=== PATIENT | female | born 1960 | race African-American/Black ===

== ENCOUNTER 2019-10-09 21:32 | Inpatient (IN) | payer MEDICAID ==
[~2019-10-09] VITALS: Ht 162.6 cm; Wt 84.8 kg
[~2019-10-09 21:32] MED LIST: ASPI-986 PO; BENA20TA10 PO; CALC-889 PO; CELL5 PO; CLOP75TA4 PO; FERR-71 PO; GABA300S PO; METH4TAB17 PO; PREN-88 PO; [UNRECOGNIZED DRUG - CODE] PO
[2019-10-09 22:20] LABS: BASOPHILS % 0.4 % (0.0-2.0); EOSINOPHILS % 0.5 % (0.0-5.0); HEMATOCRIT. 44.8 % (36.0-48.0); HEMOGLOBIN. 13.9 g/dL (12.0-16.0); LYMPHOCYTES % 11.7 % (20.0-50.0); MEAN CORPUSCULAR HEMOGLOBIN 25.4 pg (28.0-32.0); MEAN CORPUSCULAR VOLUME 81.7 fL (81.0-99.0); MEAN PLATELET VOLUME 8.8 fl (7.4-10.4); MONOCYTES % 3.7 % (2.0-8.0); NEUTROPHILS % 83.7 % (40.0-76.0); PLATELET 250 x1000/uL (130-400); RED BLOOD CELL COUNT 5.49 mill/uL (4.2-5.4)
[2019-10-09 22:24] LABS: CHLORIDE 108 mEq/L (98-107)
[2019-10-09 22:26] LABS: PROTHROMBIN TIME 10.6 sec (9.6-11.0)
[2019-10-09] MEDS ORDERED: ONDANSETRON HCL 4MG/2ML INJ IV STA (23:07)
[2019-10-09] MEDS ORDERED: MORPHINE SULFATE 4 MG/ML CPJ (NOT FOR IM USE) IV STA (23:07)
[2019-10-09] MEDS ORDERED: NITROGLYCERIN OINT 1GM/INCH UDPKT TD ONE (23:15)
[2019-10-09] MEDS ORDERED: ASPIRIN 81MG TABLET PO ONE (23:15)
[2019-10-10] VITALS (59 sets, daily range): BP systolic 114–168; BP diastolic 24–98
[2019-10-10] MEDS ORDERED: AMIODARONE HCL 150 MG in DEXT 5% WATER 100 ML IV SCH (00:30)
[2019-10-10] MEDS ORDERED: AMIODARONE HCL 900 MG in DEXT 5% WATER 500 ML IV SCH (01:00)
[2019-10-10] MEDS ORDERED: LORAZEPAM 2MG/ML CPJ IV PRN (07:00)
[2019-10-10] MEDS ORDERED: HYDRALAZINE 20MG/ML VIAL IV PRN (07:00)
[2019-10-10] MEDS ORDERED: DEXTROSE 50% WATER 50ML SYRINGE IV PRN (07:00)
[2019-10-10] MEDS ORDERED: ENOXAPARIN 40MG/0.4ML SYR SUBCUT SCH (07:00)
[2019-10-10] MEDS ORDERED: DOCUSATE SODIUM 100MG CAPSULE PO PRN (07:00)
[2019-10-10] MEDS ORDERED: ACETAMINOPHEN 325MG TABLET PO PRN (07:00)
[2019-10-10] MEDS ORDERED: MAGNESIUM/ALUMINUM HYDROXIDE/SIMETHICONE 30ML UDC PO PRN (07:00)
[2019-10-10] MEDS ORDERED: IPRATROPIUM/ALBUTEROL 0.5-3(2.5)MG/3ML NEB NEB PRN (07:00)
[2019-10-10] MEDS ORDERED: NA PHOS,M-B/NA PHOS,DI-BA ENEMA 118ML PR PRN (07:00)
[2019-10-10] MEDS ORDERED: CLONIDINE 0.1MG TABLET PO PRN (07:00)
[2019-10-10] MEDS: AMIODARONE HCL 900 MG in DEXT 5% WATER 482 ML IV PRN ×2 (09:00→22:38)
[2019-10-10] MEDS: ENOXAPARIN 30MG/0.3ML SYR SUBCUT SCH ×2 (09:49→21:00)
[2019-10-10] MEDS: MORPHINE SULFATE 2 MG/ML CPJ (NOT FOR IM USE) IV PRN ×3 (09:50→22:49)
[2019-10-10] MEDS ORDERED: METF-815 PO (11:17)
[2019-10-10] MEDS: BLOOD SUGAR DIAGNOSTIC STRIP TEST SCH ×3 (11:30→21:19)
[2019-10-10] MEDS: INSULIN LISPRO 100 UNITS/ML SUBCUT SCH ×3 (12:00→21:19)
[2019-10-10] MEDS: SODIUM CHLORIDE 0.9% INJ 3ML FLUSH IVF SCH ×2 (13:14→21:19)
[2019-10-10 16:17] LABS: CREATINE KINASE MB FRACTION 1.7 ng/mL (0.5-3.6)
[2019-10-10] MEDS: HYDROCODONE/ACETAMINOPHEN 10/325MG TABLET PO PRN (21:03)
[2019-10-10] MEDS: GUAIFENESIN 200MG/10ML SUGAR FREE UDC PO PRN (21:20)
[2019-10-11] VITALS (70 sets, daily range): BP systolic 113–169; BP diastolic 45–100
[2019-10-11 00:21] LABS: CREATINE KINASE MB FRACTION 1.6 ng/mL (0.5-3.6)
[2019-10-11] MEDS: MORPHINE SULFATE 2 MG/ML CPJ (NOT FOR IM USE) IV PRN ×2 (04:30→15:18)
[2019-10-11] MEDS: ONDANSETRON HCL 4MG/2ML INJ IV PRN ×3 (04:40→20:11)
[2019-10-11 05:38] LABS: BASOPHILS % 0.6 % (0.0-2.0); EOSINOPHILS % 1.6 % (0.0-5.0); HEMATOCRIT. 40.5 % (36.0-48.0); HEMOGLOBIN. 13.4 g/dL (12.0-16.0); LYMPHOCYTES % 28.5 % (20.0-50.0); MEAN CORPUSCULAR HEMOGLOBIN 26.7 pg (28.0-32.0); MEAN CORPUSCULAR VOLUME 80.4 fL (81.0-99.0); MEAN PLATELET VOLUME 8.3 fl (7.4-10.4); MONOCYTES % 6.4 % (2.0-8.0); NEUTROPHILS % 62.9 % (40.0-76.0); PLATELET 254 x1000/uL (130-400); RED BLOOD CELL COUNT 5.04 mill/uL (4.2-5.4); RED CELL DISTRIBUTION WIDTH 14.5 % (11.6-14.6)
[2019-10-11 05:49] LABS: CHLORIDE 111 mEq/L (98-107)
[2019-10-11 05:58] LABS: LDL CHOLESTEROL 54 mg/dL (5-100)
[2019-10-11 05:59] LABS: HDL CHOLESTEROL 43 mg/dL (40-59); T4 FREE 1.24 ng/dL (0.76-1.46)
[2019-10-11] MEDS: GUAIFENESIN 200MG/10ML SUGAR FREE UDC PO PRN (06:03)
[2019-10-11] MEDS: SODIUM CHLORIDE 0.9% INJ 3ML FLUSH IVF SCH ×3 (06:04→22:21)
[2019-10-11] MEDS: INSULIN LISPRO 100 UNITS/ML SUBCUT SCH ×4 (06:11→21:00)
[2019-10-11] MEDS: BLOOD SUGAR DIAGNOSTIC STRIP TEST SCH ×4 (06:11→21:00)
[2019-10-11] MEDS: ENOXAPARIN 30MG/0.3ML SYR SUBCUT SCH ×2 (08:00→20:11)
[2019-10-11] MEDS: METOPROLOL TARTRATE 25MG TABLET PO SCH ×2 (09:38→20:45)
[2019-10-11] MEDS: GUAIFENESIN 600MG ER TABLET PO SCH ×2 (11:17→20:44)
[2019-10-11] MEDS: NICOTINE 14MG PATCH TD SCH (11:17)
[2019-10-11] MEDS: IPRATROPIUM BROMIDE (0.02%) 0.5MG/2.5ML NEB HHN SCH ×2 (12:32→20:36)
[2019-10-11] MEDS: METHYLPREDNISOLONE 4MG TABLET PO SCH (12:39)
[2019-10-11] MEDS: DIPHENHYDRAMINE 50MG/ML VIAL IV PRN (20:13)
[2019-10-12] VITALS (23 sets, daily range): BP systolic 106–150; BP diastolic 64–94
[2019-10-12] MEDS: HYDROCODONE/ACETAMINOPHEN 10/325MG TABLET PO PRN ×3 (00:04→21:41)
[2019-10-12] MEDS: IPRATROPIUM BROMIDE (0.02%) 0.5MG/2.5ML NEB HHN SCH ×3 (01:40→14:32)
[2019-10-12] MEDS: DIPHENHYDRAMINE 50MG/ML VIAL IV PRN ×2 (02:17→21:40)
[2019-10-12] MEDS: ONDANSETRON HCL 4MG/2ML INJ IV PRN ×2 (02:17→12:15)
[2019-10-12] MEDS: SODIUM CHLORIDE 0.9% INJ 3ML FLUSH IVF SCH ×3 (06:00→21:17)
[2019-10-12] MEDS: INSULIN LISPRO 100 UNITS/ML SUBCUT SCH ×4 (07:50→21:00)
[2019-10-12] MEDS: BLOOD SUGAR DIAGNOSTIC STRIP TEST SCH ×4 (07:50→21:15)
[2019-10-12] MEDS: ENOXAPARIN 30MG/0.3ML SYR SUBCUT SCH ×2 (08:46→21:17)
[2019-10-12] MEDS: METHYLPREDNISOLONE 4MG TABLET PO SCH (08:46)
[2019-10-12] MEDS: METOPROLOL TARTRATE 25MG TABLET PO SCH ×2 (08:46→21:08)
[2019-10-12] MEDS: NICOTINE 14MG PATCH TD SCH (08:47)
[2019-10-12] MEDS: GUAIFENESIN 600MG ER TABLET PO SCH ×2 (09:00→21:07)
[2019-10-12 10:30] LABS: CHLORIDE 108 mEq/L (98-107)
[2019-10-13] VITALS (25 sets, daily range): BP systolic 102–171; BP diastolic 55–97
[2019-10-13] MEDS: DIPHENHYDRAMINE 50MG/ML VIAL IV PRN ×2 (01:42→21:10)
[2019-10-13] MEDS: IPRATROPIUM BROMIDE (0.02%) 0.5MG/2.5ML NEB HHN SCH ×4 (02:06→20:23)
[2019-10-13] MEDS: SODIUM CHLORIDE 0.9% INJ 3ML FLUSH IVF SCH ×3 (06:27→21:13)
[2019-10-13] MEDS: INSULIN LISPRO 100 UNITS/ML SUBCUT SCH ×4 (06:27→21:13)
[2019-10-13] MEDS: BLOOD SUGAR DIAGNOSTIC STRIP TEST SCH ×4 (06:27→21:13)
[2019-10-13] MEDS: METOPROLOL TARTRATE 25MG TABLET PO SCH ×2 (08:37→20:52)
[2019-10-13] MEDS: ENOXAPARIN 30MG/0.3ML SYR SUBCUT SCH ×2 (08:37→20:50)
[2019-10-13] MEDS: NICOTINE 14MG PATCH TD SCH (08:38)
[2019-10-13] MEDS: METHYLPREDNISOLONE 4MG TABLET PO SCH (08:39)
[2019-10-13] MEDS: GUAIFENESIN 600MG ER TABLET PO SCH ×2 (08:42→20:52)
[2019-10-13] MEDS: HYDROCODONE/ACETAMINOPHEN 10/325MG TABLET PO PRN ×2 (09:51→21:11)
[2019-10-13] MEDS: ONDANSETRON HCL 4MG/2ML INJ IV PRN ×2 (09:55→15:36)
[2019-10-13] MEDS ORDERED: POTASSIUM CHLORIDE 20MEQ TABLET SR PO SCH (11:30)
[2019-10-13] MEDS: OMEPRAZOLE 20MG CAPSULE EXTENDED RELEASE PO SCH (14:31)
[2019-10-14] VITALS (18 sets, daily range): BP systolic 116–163; BP diastolic 71–94
[2019-10-14] MEDS: DIPHENHYDRAMINE 50MG/ML VIAL IV PRN (01:34)
[2019-10-14] MEDS: IPRATROPIUM BROMIDE (0.02%) 0.5MG/2.5ML NEB HHN SCH ×3 (01:50→13:48)
[2019-10-14] MEDS: INSULIN LISPRO 100 UNITS/ML SUBCUT SCH ×2 (06:30→11:30)
[2019-10-14] MEDS: BLOOD SUGAR DIAGNOSTIC STRIP TEST SCH ×2 (06:36→11:30)
[2019-10-14] MEDS: SODIUM CHLORIDE 0.9% INJ 3ML FLUSH IVF SCH ×2 (06:36→13:09)
[2019-10-14] MEDS: OMEPRAZOLE 20MG CAPSULE EXTENDED RELEASE PO SCH (06:36)
[2019-10-14] MEDS: NICOTINE 14MG PATCH TD SCH (08:32)
[2019-10-14] MEDS: METHYLPREDNISOLONE 4MG TABLET PO SCH (08:32)
[2019-10-14] MEDS: GUAIFENESIN 600MG ER TABLET PO SCH (08:32)
[2019-10-14] MEDS: METOPROLOL TARTRATE 25MG TABLET PO SCH (08:33)
[2019-10-14] MEDS: ENOXAPARIN 30MG/0.3ML SYR SUBCUT SCH (08:35)
[2019-10-14] MEDS: ONDANSETRON HCL 4MG/2ML INJ IV PRN (13:09)
== END 2019-10-14 17:05 | disposition home or self-care (01) | DRG 201 ==
LOC: ER 21:32 → MICUSO 23:59 → EDBEDREQSVC 10-10 00:01 → EDBEDREQDT 10-10 00:01 → EDBEDREQ 10-10 00:01 → EDBEDREQTM 10-10 00:01 → ENRESERV 10-10 07:50
PROVIDERS: ADMIT Internal Medicine; ATTEND Internal Medicine
DX: I47.1 Supraventricular tachycardia (principal); E11.22 Type 2 diabetes mellitus with diabetic chronic kidney disease; I95.9 Hypotension, unspecified; M32.9 Systemic lupus erythematosus, unspecified; D49.7 Neoplasm of unspecified behavior of endocrine glands and other parts of nervous system; R07.89 Other chest pain; N18.9 Chronic kidney disease, unspecified; E66.9 Obesity, unspecified; I12.9 Hypertensive chronic kidney disease with stage 1 through stage 4 chronic kidney disease, or unspecified chronic kidney disease; F17.210 Nicotine dependence, cigarettes, uncomplicated; J44.9 Chronic obstructive pulmonary disease, unspecified; M19.90 Unspecified osteoarthritis, unspecified site; Z96.643 Presence of artificial hip joint, bilateral; Z68.32 Body mass index [BMI] 32.0-32.9, adult; Z88.0 Allergy status to penicillin; Z88.2 Allergy status to sulfonamides; Z79.899 Other long term (current) drug therapy; Z79.02 Long term (current) use of antithrombotics/antiplatelets; Z79.82 Long term (current) use of aspirin; Z79.84 Long term (current) use of oral hypoglycemic drugs; Z85.44 Personal history of malignant neoplasm of other female genital organs; Z86.718 Personal history of other venous thrombosis and embolism
CPT/HCPCS: 36415; 71045; 78580; 80048; 80053; 80061; 80320; 82550; 82553; 82962; 83036; 83880; 84439; 84443; 84484; 85025; 85379; 93005; 93970; 94640; 99291; J0282; J1200; J1650; J1815; J2270; J2405; J7060; J7509; G0480

== ENCOUNTER 2020-01-20 16:51 | Emergency (ER) | payer MEDICAID ==
[~2020-01-20] VITALS: Ht 167.6 cm; Wt 100.0 kg
[~2020-01-20 16:51] MED LIST changes: +METF-815 PO
[2020-01-20 17:55] LABS: BASOPHILS % 0.8 % (0.0-2.0); EOSINOPHILS % 0.6 % (0.0-5.0); HEMATOCRIT. 39.7 % (36.0-48.0); HEMOGLOBIN. 12.7 g/dL (12.0-16.0); LYMPHOCYTES % 9.7 % (20.0-50.0); MEAN CORPUSCULAR HEMOGLOBIN 26.1 pg (28.0-32.0); MEAN PLATELET VOLUME 8.3 fl (7.4-10.4); NEUTROPHILS % 83.9 % (40.0-76.0); PLATELET 267 x1000/uL (130-400); RED BLOOD CELL COUNT 4.85 mill/uL (4.2-5.4); RED CELL DISTRIBUTION WIDTH 14.8 % (11.6-14.6)
[2020-01-20 17:58] LABS: CLARITY URINE CLOUDY (CLEAR); COLOR URINE DARK YELLOW (YELLOW); KETONES URINE TRACE (NEGATIVE); LEUKOCYTE ESTERASE URINE 2+ (NEGATIVE); NITRITE URINE POSITIVE (NEGATIVE); OCCULT BLOOD URINE 3+ (NEGATIVE); PH URINE 5.5 (4.5-8.0); PROTEIN URINE 3+ (NEGATIVE); SPECIFIC GRAVITY URINE 1.018 (1.005-1.030)
[2020-01-20 18:02] LABS: INR 0.9; PROTHROMBIN TIME 10.3 sec (9.6-11.0)
[2020-01-20] MEDS ORDERED: KETOROLAC 30MG/ML VIAL IV NR (18:30)
[2020-01-20] MEDS ORDERED: CEFTRIAXONE 1 G PREMIX 50 ML IV SCH (18:30)
[2020-01-20 19:27] LABS: CHLORIDE 106 mEq/L (98-107)
[2020-01-20 20:31] VITALS: BP 126/83
== END 2020-01-20 20:59 | disposition home or self-care (01) ==
LOC: ER 16:51
DX: N39.0 Urinary tract infection, site not specified (principal); R10.84 Generalized abdominal pain; E11.9 Type 2 diabetes mellitus without complications; M32.9 Systemic lupus erythematosus, unspecified; M19.90 Unspecified osteoarthritis, unspecified site; Z88.2 Allergy status to sulfonamides; Z88.0 Allergy status to penicillin; Z79.82 Long term (current) use of aspirin
CPT/HCPCS: 36415; 80053; 81003; 83690; 85025; 85610; 87077; 87086; 87186; 96365; 96375; 99284; J0696; J1885

== ENCOUNTER 2025-08-20 05:28 | Inpatient (IN) | payer MEDICAID ==
[~2025-08-20] VITALS: Ht 167.6 cm; Wt 99.8 kg
[~2025-08-20 05:28] MED LIST changes: +BENA-8 PO; -BENA20TA10 PO; +CLOP-31 PO; -CLOP75TA4 PO; -GABA300S PO; +GABA300S4 PO; +METF-1149 PO; -METF-815 PO
[2025-08-20] MEDS ORDERED: KETOROLAC 15MG/ML VIAL IV ONE (06:30)
[2025-08-20] MEDS ORDERED: METHYLPREDNISOLONE SOD SUCC 40MG/ML (ACT-O-VIAL) IV ONE (06:30)
[2025-08-20] MEDS ORDERED: MORPHINE SULFATE 2 MG/ML INJ (NOT FOR IM USE) IV ONE (06:30)
[2025-08-20] MEDS: IPRATROPIUM BROMIDE (0.02%) 0.5MG/2.5ML NEB HHN ONE (06:38)
[2025-08-20] MEDS: ALBUTEROL (0.5%) 2.5MG/0.5ML NEB HHN ONE (06:38)
[2025-08-20 06:44] VITALS: PULSE 98; RESP 22; O2SAT 95
[2025-08-20 07:28] LABS: BASOPHILS % 0.7 % (0.0-2.0); EOSINOPHILS % 1.1 % (0.0-5.0); HEMATOCRIT. 46.0 % (36.0-48.0); HEMOGLOBIN. 14.2 g/dL (12.0-16.0); LYMPHOCYTES % 20.2 % (20.0-50.0); MEAN PLATELET VOLUME 7.8 fl (7.4-10.4); MONOCYTES % 9.0 % (2.0-8.0); NEUTROPHILS % 69.0 % (40.0-76.0); PLATELET 393 x1000/uL (130-400); RED BLOOD CELL COUNT 5.58 mill/uL (4.2-5.4); RED CELL DISTRIBUTION WIDTH 15.3 % (11.6-14.6)
[2025-08-20 07:46] LABS: CREATININE 1.4 mg/dL (0.6-1.0); UREA NITROGEN BLOOD 13 mg/dL (9-23)
[2025-08-20 07:47] LABS: PROTEIN TOTAL 6.9 g/dL (6.0-8.3)
[2025-08-20 07:48] LABS: ASPARTATE AMINOTRANSFERASE 12 IU/L (<34); BILIRUBIN TOTAL 0.4 mg/dL (0.1-1.0)
[2025-08-20 08:13] LABS: TROPONIN I HIGH SENSITIVITY 149 ng/L (3.0-34)
[2025-08-20] MEDS ORDERED: ASPIRIN 81MG TABLET PO ONE (08:30)
[2025-08-20 08:36] LABS: INFLUENZA TYPE A Presumptive Negative (Pres. Neg.); INFLUENZA TYPE B Presumptive Negative (Pres. Neg.)
[2025-08-20 08:37] LABS: RESPIRATORY SYNCYTIAL VIRUS Not Detected (Not Detectd)
[2025-08-20] MEDS: METHYLPREDNISOLONE SOD SUCC 40MG/ML (ACT-O-VIAL) IV NR (09:24)
[2025-08-20] MEDS: MORPHINE SULFATE 2 MG/ML INJ (NOT FOR IM USE) IV NR (09:24)
[2025-08-20] MEDS: ASPIRIN 81MG TABLET PO NR (09:25)
[2025-08-20] MEDS: SODIUM CHLORIDE 0.9% 500 ML IV ONE (09:25)
[2025-08-20] MEDS: KETOROLAC 15MG/ML VIAL IV NR (09:25)
[2025-08-20 11:06] LABS: TROPONIN I HIGH SENSITIVITY 171 ng/L (3.0-34)
[2025-08-20 11:30] VITALS: BP 109/75; PULSE 102; RESP 18; RESP 21; TEMP 37.5856; TEMP 37.6; O2SAT 95
[2025-08-20 12:00] VITALS: BP 109/78; PULSE 102; RESP 16; TEMP 37.6; O2SAT 93
[2025-08-20] MEDS ORDERED: IPRATROPIUM/ALBUTEROL 0.5-3(2.5)MG/3ML NEB HHN PRN (12:30)
[2025-08-20] MEDS ORDERED: MAGNESIUM/ALUMINUM HYDROXIDE/SIMETHICONE 30ML UDC PO PRN (12:30)
[2025-08-20] MEDS ORDERED: DIPHENHYDRAMINE 50MG/ML VIAL IV PRN (12:30)
[2025-08-20] MEDS ORDERED: DEXTROSE 50% WATER 50ML SYRINGE IV PRN (12:30)
[2025-08-20] MEDS ORDERED: CLONIDINE 0.1MG TABLET PO PRN (12:30)
[2025-08-20] MEDS: LISINOPRIL 5MG TABLET PO SCH (13:00)
[2025-08-20] MEDS: BLOOD SUGAR DIAGNOSTIC STRIP TEST SCH (13:06)
[2025-08-20] MEDS: GABAPENTIN 300MG CAPSULE PO SCH (13:56)
[2025-08-20] MEDS: FERROUS SULFATE 325MG TABLET PO SCH (13:56)
[2025-08-20] MEDS: ENOXAPARIN 40MG/0.4ML SYR SUBCUT SCH (13:57)
[2025-08-20] MEDS: INSULIN LISPRO 100 UNITS/ML SUBCUT SCH ×2 (13:58→22:16)
[2025-08-20] MEDS: SODIUM CHLORIDE 0.9% 3ML FLUSH IVF SCH (13:58)
[2025-08-20] MEDS: ACETAMINOPHEN 325MG TABLET PO PRN (14:01)
[2025-08-20 16:00] VITALS: BP 110/75; PULSE 102; RESP 14; TEMP 36.7; O2SAT 95
[2025-08-20] MEDS: GUAIFENESIN 200MG/10ML SUGAR FREE UDC PO PRN (18:14)
[2025-08-20] MEDS: METFORMIN HCL 500MG TABLET PO SCH (18:15)
[2025-08-20] MEDS: CALCIUM CARBONATE/VITAMIN D3 500MG TABLET PO SCH (18:15)
[2025-08-20 20:00] VITALS: BP 117/70; PULSE 101; RESP 19; TEMP 36.8; O2SAT 96
[2025-08-20] MEDS ORDERED: NALOXONE HCL 0.4MG/ML VIAL IV PRN (21:15)
[2025-08-20] MEDS: ONDANSETRON HCL 4MG/2ML INJ IV PRN (22:09)
[2025-08-20] MEDS: METHYLPREDNISOLONE SOD SUCC 40MG/ML (ACT-O-VIAL) IV SCH (22:10)
[2025-08-20] MEDS: GUAIFENESIN 600MG ER TABLET PO SCH (22:11)
[2025-08-20] MEDS: PANTOPRAZOLE 40MG DR TABLET PO SCH (22:12)
[2025-08-20] MEDS: HYDROCODONE/ACETAMINOPHEN 10/325MG TABLET PO PRN (22:13)
[2025-08-20] MEDS: BROMOCRIPTINE MESYLATE 2.5 MG TABLET PO SCH (22:13)
[2025-08-20] MEDS: MYCOPHENOLATE MOFETIL 500MG TABLET PO SCH (22:13)
[2025-08-20] MEDS: INSULIN GLARGINE 100 UNITS/ML SUBCUT SCH (22:15)
[2025-08-21] VITALS (11 sets, daily range): BP systolic 99–119; BP diastolic 63–76; PULSE 59–98; RESP 17–22; TEMP 36.2–37.1; O2SAT 97–100
[2025-08-21] MEDS: IPRATROPIUM/ALBUTEROL 0.5-3(2.5)MG/3ML NEB HHN SCH ×2 (07:52→17:18)
[2025-08-21] MEDS ORDERED: METHYLPREDNISOLONE 4MG TABLET PO SCH (09:00)
[2025-08-21] MEDS ORDERED: LOTEN PO SCH (09:00)
[2025-08-21] MEDS: CLOPIDOGREL 75MG TABLET PO SCH (10:01)
[2025-08-21] MEDS: ASPIRIN 325MG EC TABLET PO SCH (10:01)
[2025-08-21] MEDS: EMPAGLIFLOZIN 25MG TABLET PO SCH (10:01)
[2025-08-21] MEDS: INSULIN GLARGINE 100 UNITS/ML SUBCUT SCH (21:04)
[2025-08-21] MEDS: ZOLPIDEM TARTRATE 5MG TABLET PO PRN (22:48)
[2025-08-22] VITALS (10 sets, daily range): BP systolic 92–120; BP diastolic 45–79; PULSE 69–101; RESP 15–20; TEMP 36.1–36.8; O2SAT 95–100
[2025-08-22] MEDS: PROMETHAZINE/DEXTROMETHORPHAN 6.25-15MG/5ML PO PRN (05:04)
[2025-08-22] MEDS: ACETAMINOPHEN 325MG TABLET PO PRN (13:40)
[2025-08-23] VITALS (8 sets, daily range): BP systolic 96–151; BP diastolic 60–92; PULSE 62–104; RESP 16–20; TEMP 35.7–37; O2SAT 95–100
[2025-08-23] MEDS ORDERED: METH4TAB95 MT (14:31)
[2025-08-23] MEDS ORDERED: METH4TAB95 PO ×2 (14:32→17:24)
[2025-08-23] MEDS ORDERED: TRAM50TA3 PO (17:24)
[2025-08-23] MEDS ORDERED: GUAI-741 PO (17:27)
== END 2025-08-23 20:15 | disposition home or self-care (01) | DRG 145 ==
LOC: ER 05:43 → 7WST 08:23 → EDBEDREQ 08:35 → ENRESERV 09:43
PROVIDERS: ADMIT Internal Medicine; ATTEND Internal Medicine
DX: J20.9 Acute bronchitis, unspecified (principal); J96.01 Acute respiratory failure with hypoxia; J44.0 Chronic obstructive pulmonary disease with (acute) lower respiratory infection; J44.1 Chronic obstructive pulmonary disease with (acute) exacerbation; J45.901 Unspecified asthma with (acute) exacerbation; M32.9 Systemic lupus erythematosus, unspecified; E11.22 Type 2 diabetes mellitus with diabetic chronic kidney disease; I12.9 Hypertensive chronic kidney disease with stage 1 through stage 4 chronic kidney disease, or unspecified chronic kidney disease; N18.9 Chronic kidney disease, unspecified; D49.7 Neoplasm of unspecified behavior of endocrine glands and other parts of nervous system; F17.210 Nicotine dependence, cigarettes, uncomplicated; Z88.0 Allergy status to penicillin; Z88.2 Allergy status to sulfonamides
CPT/HCPCS: 36415; 71045; 80053; 82550; 82962; 83036; 83880; 84484; 85025; 87420; 87426; 87804; 93005; 94070; 94640; 94664; 99291; A4606; A4615; J1650; J1815; J1885; J2270; J2405; J2919; J7040; J7509; J7517